=== PATIENT | female | born 1955 | race Caucasian/White ===

== ENCOUNTER 2021-06-22 09:10 | Day surgery (SDC) | payer BC, MEDICARE ==
[~2021-06-22 09:10] MED LIST: Lactated Ringers 1,000 ML IV SCH
--- NOTE | 2021-06-22 10:46 | PCM.PREANE ---
Preanesthetic Assessment - Anesthesia/Transfusion/Family Hx Anesthesia History: Prior Anesthesia Without Reaction Other Type of Anesthesia Reaction Comment: REports Nausea post anesthesia with larger surgeries Transfusion History: No Prior Transfusion(s) Intubation History: Unknown - Review of Systems General: No Symptoms Pulmonary: No Symptoms Cardiovascular: No Symptoms Gastrointestinal: No Symptoms Neurological: No Symptoms Other: Reports: None - Physical Assessment NPO Status Date: 06/22/21 NPO Status Time: 00:00 Vital Signs: Last Vital Signs Temp 97.3 F 06/22/21 10:12 Pulse 77 06/22/21 10:12 Resp 16 06/22/21 10:12 BP 115/68 06/22/21 10:12 Pulse Ox 99 06/22/21 10:12 Height: 5 ft 6 in Weight: 163 lb ASA Class: 2 Mental Status: Alert & Oriented x3 Airway Class: Mallampati = 1 Dentition: Reports: Normal Dentition Thyro-Mental Finger Breadths: 3 Mouth Opening Finger Breadths: 3 ROM/Head Extension: Full Lungs: Clear to Auscultation, Normal Respiratory Effort Cardiovascular: Regular Rate, Regular Rhythm - Lab Values: Laboratory Last Values SARS-CoV-2 RNA (YULIA) NEGATIVE (NEGATIVE) 06/22/21 09:02 - Allergies Allergies/Adverse Reactions: Allergies Allergy/AdvReac Type Severity Reaction Status Date / Time morphine Allergy Itching Verified 06/22/21 10:13 - Acknowledgements Anesthesia Type Planned: General Anesthesia Pt an Appropriate Candidate for the Planned Anesthesia: Yes Alternatives and Risks of Anesthesia Discussed w Pt/Guardian: Yes Pt/Guardian Understands and Agrees with Anesthesia Plan: Yes PreAnesthesia Questionnaire HEENT History: Reports: Allergic Rhinitis, Other (See Below) Other HEENT History: wears glasses Cardiovascular History: Reports: None Respiratory History: Reports: None Gastrointestinal History: Reports: Colon Polyp, Diverticulosis, GERD Genitourinary History: Reports: None 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: Musculoskeletal History: Reports: None Neurological History: Reports: None Psychiatric History: Reports: Anxiety, Depression Endocrine/Metabolic History: Reports: None Hematologic History: Reports: None Immunologic History: Reports: None Oncologic (Cancer) History: Reports: None Dermatologic History: Reports: Other (See Below) Other Dermatologic History: rosacea - Past Surgical History Head Surgeries/Procedures: Reports: None HEENT Surgical History: Reports: Tonsillectomy Cardiovascular Surgical History: Reports: None Respiratory Surgical History: Reports: None GI Surgical History: Reports: Colonoscopy Female Surgical History: Reports: Hysterectomy, Salpingo-Oophorectomy, Tubal Ligation, Other (See Below) Other Female Surgeries/Procedures: TOVT 2013 , excision/version of exposed vaginal mesh 2019 Endocrine Surgical History: Reports: None Neurological Surgical History: Reports: None Musculoskeletal Surgical History: Reports: Other (See Below) Other Musculoskeletal Surgeries/Procedures:: right Bunionectomy Oncologic Surgical History: Reports: None Dermatological Surgical History: Reports: Other (See Below) - SUBSTANCE USE Tobacco Use Status *Q: Former Tobacco User Tobacco Use Within Last Twelve Months: No - HOME MEDS Home Medications: Home Meds Multivitamin [Multivitamins] 1 tab PO DAILY 08/06/18 [History] Omeprazole Magnesium [Prilosec Otc] 20 mg PO DAILY 08/06/18 [History] Calcium Carb/D3/Mag AA Chelate [Coral Calcium Capsule] 1 tab PO DAILY 09/18/18 [History] Cetirizine [ZyrTEC] 10 mg PO DAILY 06/18/21 [History] - CURRENT (IN HOUSE) MEDS Current Meds: Current Medications Lactated Ringer's (Ringers, Lactated) 1,000 mls @ 125 mls/hr IV ASDIRECTED [facility] [place] Last Admin: 06/22/21 10:28 Dose: 125 mls/hr Documented by:
[2021-06-22] MEDS ORDERED: fentaNYL 100 MCG/2 ML SDV ONE (11:52)
[2021-06-22] MEDS ORDERED: Propofol 200 MG/20 ML SDV ONE ×2 (11:52→12:06)
--- NOTE | 2021-06-22 12:31 | PCM.POSTAN ---
POST ANESTHESIA ASSESSMENT - MENTAL STATUS Mental Status: Alert, Oriented - VITAL SIGNS Vital Signs: Last Vital Signs Temp 97.2 F 06/22/21 12:26 Pulse 80 06/22/21 12:26 Resp 11 L 06/22/21 12:26 BP 107/63 06/22/21 12:26 Pulse Ox 96 06/22/21 12:26 - RESPIRATORY Respiratory Status: Respiratory Rate WNL, Airway Patent, O2 Saturation Stable - CARDIOVASCULAR CV Status: Pulse Rate WNL, Blood Pressure Stable - GASTROINTESTINAL GI Status: No Symptoms - POST OP HYDRATION Hydration Status: Adequate & Stable
--- NOTE | 2021-06-22 12:31 | PCM48HPAN ---
Post Anesthesia Note - EVALUATION WITHIN 48HRS OF ANESTHETIC Vital Signs in Normal Range: Yes Patient Participated in Evaluation: Yes Respiratory Function Stable: Yes Airway Patent: Yes Cardiovascular Function Stable: Yes Hydration Status Stable: Yes Pain Control Satisfactory: Yes Nausea and Vomiting Control Satisfactory: Yes Mental Status Recovered: Yes Vital Signs: Last Vital Signs Temp 97.2 F 06/22/21 12:26 Pulse 80 06/22/21 12:26 Resp 11 L 06/22/21 12:26 BP 107/63 06/22/21 12:26 Pulse Ox 96 06/22/21 12:26
--- NOTE | 2021-06-22 12:52 | PCM.OPNOTE ---
- General Post-Op/Procedure Note Date of Surgery/Procedure: 06/22/21 Operative Procedure(s): Colonoscopy Pre Op Diagnosis: Rectal bleeding. Personal history of colon polyps. Family history of colon cancer. Post-Op Diagnosis: Pancolonic diverticulosis with low-grade sigmoid diverticulitis Anesthesia Technique: MAC (ASA II) Primary Surgeon: Vega Holland Condition: Good Free Text/Narrative:: Intake & Output 06/22/21 06/22/21 06/22/21 03:59 11:59 19:59 Intake Total 1000 Balance 1000 DICTATION [id number] CPT CODE 64180
[2021-06-22] MEDS ORDERED: Lactated Ringers 1,000 ML IV SCH (13:00)
[2021-06-22 13:33] VITALS: BP 121/72; PULSE 72
--- NOTE | 2021-06-22 17:53 | OR ---
SURGEON: Vega Holland M.D. DATE OF PROCEDURE: 06/22/2021 OPERATION PERFORMED: Colonoscopy. PRIMARY SURGEON: Vega Holland M.D. ANESTHESIA: MAC. ASA CLASSIFICATION: II. PREOPERATIVE DIAGNOSES: 1. Intermittent rectal bleeding. 2. Personal history of colon polyps. 3. Family history of colon cancer. POSTOPERATIVE DIAGNOSIS: Sigmoid diverticulosis with low-grade diverticulitis. DESCRIPTION OF PROCEDURE: The patient was taken to the endoscopy room and positioned on the endoscopy table in the left lateral decubitus position. Time-out was called for appropriate identification of the patient and procedure. Monitored anesthesia care was provided. The colonoscope was inserted into the rectum and advanced with moderate difficulty to the cecum. The patient did have a significant U- shaped transverse colon making insertion of the scope somewhat difficult. The colonoscope was inserted to the cecum which was identified by internal landmarks and external pressure. The colonoscope was retroflexed to visualize the ascending colon from below, then straightened, and slowly withdrawn. A few scattered diverticula were seen scattered throughout the entire length of the colon. The cecum, ascending colon, hepatic flexure, transverse colon, splenic flexure, and descending colon showed no tumors or polyps. Again, the sigmoid colon demonstrated diverticular change along with moderate erythema. No stricture, spasm, or bleeding was noted. No polyps were encountered in the sigmoid colon. Once the colonoscope was withdrawn to the rectum, it was retroflexed to visualize the anal orifice from above. Again, no tumors or polyps were seen and there were no acute hemorrhoidal changes. The colonoscope was then straightened, the rectum aspirated, and the colonoscope removed. The patient tolerated the procedure well and was taken to recovery room in stable condition. ANGELINE / CHARLENE /[id number]
== END 2021-06-22 13:20 | disposition home or self-care (01) ==
LOC: MW.SDS 09:10
PROVIDERS: ATTEND Surgery
DX: K57.33 Diverticulitis of large intestine without perforation or abscess with bleeding (principal); K21.9 Gastro-esophageal reflux disease without esophagitis; F32.A Depression, unspecified; E78.5 Hyperlipidemia, unspecified; E66.3 Overweight; G47.30 Sleep apnea, unspecified; K90.0 Celiac disease; Z01.812 Encounter for preprocedural laboratory examination; Z20.822 Contact with and (suspected) exposure to COVID-19; Z86.010 Personal history of colon polyps; Z80.0 Family history of malignant neoplasm of digestive organs; Z88.5 Allergy status to narcotic agent; Z79.899 Other long term (current) drug therapy; Z98.890 Other specified postprocedural states; Z87.891 Personal history of nicotine dependence; Z68.26 Body mass index [BMI] 26.0-26.9, adult
CPT/HCPCS: 45378; 87635; J2704; J3010; J7120; U0002